=== PATIENT | female | born 1965 | race Caucasian/White ===

== ENCOUNTER 2017-06-30 03:57 | Emergency (ER) | payer BC ==
[~2017-06-30] VITALS: Ht 154.9 cm; Wt 65.9 kg
[2017-06-30 04:10] VITALS: Ht 154.9 cm; Wt 65.9 kg
[2017-06-30 06:37] VITALS: BP 143/85
== END 2017-06-30 06:37 | disposition home or self-care (01) ==
LOC: ED 03:57
DX: H18.821 Corneal disorder due to contact lens, right eye (principal); I10 Essential (primary) hypertension; Z90.711 Acquired absence of uterus with remaining cervical stump